=== PATIENT | female | born 1965 ===

== ENCOUNTER 2023-12-31 07:30 | Day surgery (SDC) | payer OTHER ==
[2023-12-23 09:38] LABS: HEMATOCRIT 33.8 % (36.0-45.00); MEAN CELL VOLUME 82.1 fL (80.00-100.00); MEAN CORPUSCULAR HEMOGLOBIN 26.8 pg (27.00-32.0); MEAN CORPUSCULAR HGB CONC 32.6 g/dl (32.0-36.0); PLATELET COUNT 265 K/uL (150-450); RED BLOOD COUNT 4.11 M/uL (4.00-6.00); RED CELL DISTRIBUTION WIDTH 14.6 % (11.5-14.5)
[2023-12-23 09:49] LABS: URINE APPEARANCE Clear; URINE BILIRRUBIN Negative (NEGATIVE); URINE BLOOD Negative; URINE COLOR Yellow; URINE GLUCOSE Negative (NEGATIVE); URINE LEUKOCYTE Small; URINE NITRATE Negative; URINE PROTEIN Negative (NEGATIVE); URINE UROBILINOGEN 0.2 E.U./dl
[2023-12-23 09:54] LABS: URINE BACTERIA 3477.2 uL (0.0-1933); URINE EPITHELIAL CELLS 47.1 uL (0.0-38.8); URINE RBC 49.7 uL (0.0-20.8); URINE WBC 105.2 uL (0.0-23.2)
[2023-12-23 10:01] LABS: INR 0.97; PARTIAL THROMBOPLASTIN TIME 31.3 SECONDS (22.0-34.0); PROTHROMBIN TIME 10.2 SECONDS (9.0-11.5)
[2023-12-23 10:16] LABS: ALBUMIN 3.6 gm/dL (3.4-5.0); BILIRUBIN TOTAL 0.52 mg/dL (0.3-1.2); CALCIUM 9.3 mg/dL (8.5-10.1); CREATININE SERUM 0.95 mg/dL (0.55-1.02); GFR 60.63; GLOBULINA 3.6 G/DL (2.4-3.5); POTASSIUM 4.14 mEq/L (3.5-5.1); TOTAL PROTEIN 7.2 gm/dL (6.4-8.2); TSH 2.63 uIU/mL (0.358-3.74)
[~2023-12-31] VITALS: Ht 172.7 cm; Wt 114.3 kg
[~2023-12-31 07:30] MED LIST: COZAAR100 MG PO; LIPITOR20 MG PO; SYNTHROID50 MCG PO
[2023-12-31] MEDS ORDERED: CEFOXITIN SODIUM 2,000 MG VIAL IV ONE ×2 (11:44→14:45)
[2023-12-31] MEDS ORDERED: POVIDONE-IODINE 118 ML BOTT TOP ONE ×2 (13:49→14:45)
[2023-12-31] MEDS ORDERED: NAPR500T14 PO (16:41)
[2023-12-31] MEDS ORDERED: MORGIDOX100 MG PO (16:41)
[2023-12-31] MEDS ORDERED: PROMETHAZINE HCL 50 MG/ML AMPUL IM ONE (16:45)
[2023-12-31] MEDS ORDERED: MORPHINE SULFATE 4 MG/ML VIAL IV PRN (16:45)
[2023-12-31] MEDS ORDERED: ENALAPRILAT DIHYDRATE 1.25 MG/ML VIAL IV ONE (18:32)
== END 2023-12-31 21:45 | disposition home or self-care (01) ==
LOC: CIR.AMB 07:30
PROVIDERS: ATTEND Obstetrics & Gynecology
DX: N85.02 Endometrial intraepithelial neoplasia [EIN] (principal); D25.0 Submucous leiomyoma of uterus; N93.8 Other specified abnormal uterine and vaginal bleeding